=== PATIENT | male | born 1970 | race Caucasian/White ===

== ENCOUNTER 2016-07-23 16:55 | Observation (INO) | payer BC ==
[~2016-07-23] VITALS: Ht 175.3 cm; Wt 76.1 kg
[~2016-07-23 16:55] MED LIST: ASPIRIN EC325 MG PO; ATARAX,VISTARIL25 MG PO; ATORVASTATIN CA40 MG PO; AZATHIOPRINE50 MG PO; CYANOCOBAL1000 MCG/2 IM; PENTASA250 MG PO; VITAMIN B-12500 MC5 SL; VITAMIN D2000 UNI1 PO
[2016-07-23 18:25] LABS: ADD MIUA? NO; BILIRUBIN NEGATIVE; BLOOD NEGATIVE; COLOR YELLOW ((YELLOW)); GLUCOSE (STRIP) NEGATIVE; KETONES NEGATIVE; LEUKOCYTES NEGATIVE; NITRITE NEGATIVE; PROTEIN (STRIP) NEGATIVE; SPECIFIC GRAVITY 1.011 (1.000-1.030); UROBILINOGEN 0.2 MG/DL (0.2-1.0)
[2016-07-23 18:31] LABS: HEMATOCRIT 40.8 % (38.0-50.0); MCH 34.9 PG (29.0-34.0); MCV 96.9 FL (86-99); MEAN PLAT.VOLUME 10.3 uM^3 (9.0-12.4); PLATELET COUNT 176 K/uL (156-360); RBC DIS.WIDTH-CV 13.7 % (11.8-14.6); RBC DIS.WIDTH-SD 46.3 % (39-53); RED BLOOD COUNT 4.21 M/uL (4.00-5.50)
[2016-07-23 18:39] LABS: CHLORIDE 104 mEq/L (99-109); POTASSIUM 4.2 mEq/L (3.7-5.4); SODIUM 140 mEq/L (136-147)
[2016-07-23 18:41] LABS: GLUCOSE 104 mg/dL (70-99)
[2016-07-23 18:43] LABS: ANION GAP 12 MEQ/L (2-14); PROTHROMBIN TIME 10.5 (9.2-11.2); PTT 26.4 (25-32)
[2016-07-23 18:45] LABS: GFR ESTIMATE (CALCULATED) > 59 mL/min/
[2016-07-23 18:46] LABS: UREA NITROGEN (BUN) 19 mg/dL (9-23)
[2016-07-23 18:52] LABS: TROP-I INTERPRETATION NEGATIVE; TROPONIN-I < 0.01 ng/mL (0.0-0.30)
[2016-07-23] MEDS ORDERED: PENTASA500 MG PO (20:11)
[2016-07-23] MEDS ORDERED: VITAMIN D31000 UNIT PO (20:12)
[2016-07-23] MEDS ORDERED: OMEGA 3 500 SO1 EACH PO (20:12)
[2016-07-23] MEDS ORDERED: ATORVASTATIN CA80 MG PO (20:12)
[2016-07-23] MEDS ORDERED: LITE COAT ASPI325 M1 PO (20:13)
[2016-07-23 22:45] LABS: HDL CHOLESTEROL 41 MG/DL (Desirable>=40); LDL CHOLESTEROL 30 mg/dL (Desirable<100); NON-HDL CHOLESTEROL 47 mg/dL (Desirable<160); TOTAL CHOLESTEROL 88 mg/dL (Desirable<200); TRIGLYCERIDES 83 MG/DL (Normal: <150)
[2016-07-24 00:30] VITALS: BP 126/77
[2016-07-24 05:04] VITALS: BP 118/75
[2016-07-24 06:39] LABS: HEMATOCRIT 37.6 % (38.0-50.0); MCH 34.8 PG (29.0-34.0); MCHC 35.6 G/DL (30.0-36.0); MCV 97.7 FL (86-99); MEAN PLAT.VOLUME 10.9 uM^3 (9.0-12.4); PLATELET COUNT 154 K/uL (156-360); RBC DIS.WIDTH-SD 49.4 % (39-53); RED BLOOD COUNT 3.85 M/uL (4.00-5.50)
[2016-07-24 06:45] LABS: WHITE BLOOD COUNT 3.3 K/uL (4.1-10.2)
[2016-07-24 07:31] LABS: Estimated Average Glucose 85 mg/dL (70-123); HEMOGLOBIN A1c (GLYCOHEMOGLOB) 4.6 % HGB (Below 5.7)
[2016-07-24 11:42] VITALS: BP 131/66
[2016-07-24 16:25] VITALS: BP 128/68
== END 2016-07-24 19:48 | disposition home or self-care (01) ==
LOC: EME → EDBD 16:55 → 5WEST 22:05 → EDOF 22:05 → 5WEST 07-24 00:03
PROVIDERS: Hospitalist; Nurse Practitioner Family
DX: G45.9 Transient cerebral ischemic attack, unspecified (principal); Z86.73 Personal history of transient ischemic attack (TIA), and cerebral infarction without residual deficits; K50.90 Crohn's disease, unspecified, without complications; Z79.82 Long term (current) use of aspirin
CPT/HCPCS: 70450; 70551; 71020; 80048; 80061; 81003; 83036; 84484; 85027; 85610; 85730; 93005; 99281; 99285; G0378; J7030; J7500